=== PATIENT | female | born 1985 | race Caucasian/White ===

== ENCOUNTER 2020-02-11 04:38 | Emergency (ER) | payer OTHER ==
[~2020-02-11] VITALS: Ht 154.9 cm; Wt 72.1 kg
[2020-02-11] MEDS ORDERED: CRUTCHES MISCELL (06:56)
[2020-02-11] MEDS ORDERED: NORCO 5-325 TA1 EAC2 PO (07:47)
[2020-02-11 08:00] VITALS: BP 120/74
== END 2020-02-11 08:00 | disposition home or self-care (01) ==
LOC: M.ERS 04:38
DX: S92.321A Displaced fracture of second metatarsal bone, right foot, initial encounter for closed fracture (principal); M25.561 Pain in right knee; W01.0XXA Fall on same level from slipping, tripping and stumbling without subsequent striking against object, initial encounter; Y93.89 Activity, other specified; Y92.89 Other specified places as the place of occurrence of the external cause; Y99.8 Other external cause status